=== PATIENT | male | born 1990 | race Two or more races ===

== ENCOUNTER 2017-01-11 15:22 | Emergency (ER) | payer SELFPAY ==
[2017-01-11] MEDS ORDERED: LIDOCAINE 1% INJ-PF (10 MG/ML) 30 ML SDV INJ ONE (17:07)
[2017-01-11] MEDS ORDERED: HYDROCODONE/ACETAMINOPHEN 5-325 MG 6 TAB/DSPK PO PRN (17:08)
--- NOTE | 2017-01-11 17:16 | ER Document Report ---
ED Head/Face/Scalp Injury - General Chief Complaint: Head Injury Stated Complaint: HEAD INJURY Time Seen by Provider: 01/11/17 16:56 Mode of Arrival: Ambulatory Information source: Patient Notes: 26-year-old male presents to the ED for complaint of head injury. He states he was laying on the carpet underneath of across the door that had been taken off its hinges when he stood at the closet door fell on his head causing laceration to his scalp. TRAVEL OUTSIDE OF THE [place] IN LAST 30 DAYS: No - HPI Patient complains to provider of: Contusion, Injury, Laceration, Pain, Swelling Injury to: Head Location of problem: Head Occurred: This afternoon Where: Public place Timing: Still present Context: Laceration, Other - Door fell on his head Loss consciousness: No loss of consciousness Remembers: Injury, Coming to hospital - Related Data Allergies/Adverse Reactions: No Known Allergies Allergy (Verified 12/04/15 18:45) Past Medical History - General Information source: Patient - Social History Smoking Status: Current Every Day Smoker Cigarette use (# per day): Yes - Half a pack a day Chew tobacco use (# tins/day): No Smoking Education Provided: Yes - Less than 2 minutes Frequency of alcohol use: Social Drug Abuse: Marijuana 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 Lives with: Family Family History: Arthritis, CAD, CVA, DM, Hyperlipidemia, Hypertension Patient has suicidal ideation: No Patient has homicidal ideation: No - Past Medical History Cardiac Medical History: Reports: None Pulmonary Medical History: Reports: None EENT Medical History: Reports: None Neurological Medical History: Reports: None Endocrine Medical History: Reports: None Renal/ Medical History: Reports: None Malignancy Medical History: Reports None GI Medical History: Reports: None Musculoskeltal Medical History: Reports None Skin Medical History: Reports None Psychiatric Medical History: Reports: None Traumatic Medical History: Reports: None Infectious Medical History: Reports: None Surgical Hx: Negative Past Surgical History: Reports: None - Immunizations Immunizations up to date: No Hx Diphtheria, Pertussis, Tetanus Vaccination: Yes - 2012 Hx Pneumococcal Vaccination: 05/31/00 Review of Systems - Review of Systems Constitutional: No symptoms reported EENT: No symptoms reported Cardiovascular: No symptoms reported Respiratory: No symptoms reported Gastrointestinal: Nausea. denies: Vomiting Genitourinary: No symptoms reported Male Genitourinary: No symptoms reported Musculoskeletal: No symptoms reported Skin: Other - scalp laceration Hematologic/Lymphatic: No symptoms reported Neurological/Psychological: Headaches. denies: Lost consciousness -: Yes All other systems reviewed and negative Physical Exam - Vital signs Vitals: Temp Pulse Resp BP Pulse Ox 98.5 F 59 L 18 116/61 99 01/11/17 15:51 01/11/17 15:51 01/11/17 15:51 01/11/17 15:51 01/11/17 15:51 Interpretation: Normal - General General appearance: Appears well, Alert - HEENT Head: Ecchymosis, Open wounds, Tenderness Eyes: Normal Pupils: PERRL Ears: Normal External canal: Normal Tympanic membrane: Normal Sinus: Normal Nasal: Normal Mouth/Lips: Normal Pharynx: Normal Neck: Normal - Respiratory Respiratory status: No respiratory distress Chest status: Nontender Breath sounds: Normal Chest palpation: Normal - Cardiovascular Rhythm: Regular Heart sounds: Normal auscultation Murmur: No - Abdominal Inspection: Normal Distension: No distension Bowel sounds: Normal Tenderness: Nontender Organomegaly: No organomegaly - Back Back: Normal, Nontender - Extremities General upper extremity: Normal inspection, Nontender, Normal color, Normal ROM , Normal temperature General lower extremity: Normal inspection, Nontender, Normal color, Normal ROM , Normal temperature, Normal weight bearing. No: Linus's sign - Neurological Neuro grossly intact: Yes Cognition: Normal Orientation: AAOx4 [place] Coma Scale Eye Opening: Spontaneous [place] Coma Scale Verbal: Oriented Roxanna Coma Scale Motor: Obeys Commands [place] Coma Scale Total: 15 Speech: Normal Motor strength normal: LUE, RUE, LLE, RLE Sensory: Normal - Psychological Associated symptoms: Normal affect, Normal mood - Skin Skin Temperature: Warm Skin Moisture: Dry Skin Color: Normal Course - Re-evaluation Re-evalutation: 01/11/17 22:36 Denies any consciousness. Patient was alert and oriented new where he was went he had his injury was able to verbalize what it happened and how he had hit his head. Pupils were equal react to light neuro assessment negative. Patient did have a headache and a scalp laceration which was closed with leah. Patient tolerated well. Patient was discharged home to follow-up with his primary doctor and to return to ED or follow-up with primary doctor for staple removal in 5 days. - Vital Signs Vital signs: Temp Pulse Resp BP Pulse Ox 98.2 F 60 16 93/57 L 100 01/11/17 18:12 01/11/17 18:12 01/11/17 18:12 01/11/17 18:12 01/11/17 18:12 Procedures - Laceration/Wound Repair Right scalp Wound length (cm): 3 Wound's Depth, Shape: Superficial, Linear Laceration pre-procedure: Sterile PPE donned, Sterile drapes applied, Other Anesthetic type: 1% Lidocaine Volume Anesthetic (mLs): 5 Wound explored: Clean Irrigated w/ Saline (mLs): 400 Wound Repaired With: Cleveland Suture Size/Type: Other - Leah Number of Sutures: 3 - Cleveland Layer Closure?: No Post-procedure NV exam normal: Yes Complications: No Discharge - Discharge Clinical Impression: Head injury Qualifiers: Encounter type: initial encounter Qualified Code(s): S09.90XA - Unspecified injury of head, initial encounter Scalp laceration Qualifiers: Encounter type: initial encounter Qualified Code(s): S01.01XA - Laceration without foreign body of scalp, initial encounter Condition: Stable Disposition: HOME, SELF-CARE Additional Instructions: Scalp Laceration A scalp laceration requires little care. Dressings are applied only if severe bleeding or a large flap are present. Usually, once the cut is sutured, you can ignore it. Simply comb the hair over top of it to hide the stitches and go about your usual routine. You can shampoo your hair as needed starting tomorrow. If you need to wear a special hat or protective helmet for work, be careful that it doesn't press on the area. If crusting is bothersome, you can soften the crusts with Polysporin ointment, then shampoo. Infection in a scalp laceration is rare. If any signs of infection occur ( swelling, redness, increasing tenderness, red streaks, tender lumps in the neck on the side of the laceration, or fever), see the doctor immediately. Head Injury Precautions At this point, there is no evidence that your head injury is serious. Observation is necessary, however. Take only clear liquids for the first few hours, unless told otherwise by the doctor. If no pain medication was prescribed, you may take acetaminophen according to the directions on the bottle. Do not take any medication that may alter your level of alertness (unless you've discussed it with the doctor first) . Limit activity for the first 24 hours. Bed rest is best. During the first 24 hours, check to see approximately every two to three hours that the patient is easily arousable, responds normally, and can perform common tasks such as walking without difficulty. Contact your doctor or go to the hospital if any of the following things occur: Persistent vomiting, difficulty in arousing the patient, worsening or continued headache, or failure to improve as expected. Head injuries can cause symptoms that persist for a few days or even a few weeks. Care of Stapled Wounds Your laceration has been stapled to keep the skin edges aligned during healing. The time of staple removal depends on the nature and location of your cut. Please follow the care instructions the doctor has outlined for you and return for further care, according to the schedule you've been given. A special instrument is needed to remove leah without injuring your skin further, so don't try to take the leah out yourself. Keep the wound and dressing clean. Unless you were told otherwise, you may shower daily, blotting the wound dry with a clean, unused towel. At other times, If the dressing gets wet or blood soaked, remove it and blot the wound dry, then reapply a new dressing. Unless you were instructed otherwise, dressings should be changed at least daily. If any signs of infection occur (swelling, redness, increasing tenderness, red streaks, tender lumps in the armpit or groin above the laceration, or fever) , see the doctor immediately. SOAP CLEANSING: Gently wash the wound daily using a mild soap (like Ivory, Phisoderm, Neutrogena). Use warm water, rubbing gently until all debris, ooze, and crusting have been washed from the wound. Allow to dry briefly (about 10 minutes) after cleaning. Repeat this cleansing at least three times a day for the first two days and then once or twice a day. ANTIBIOTIC OINTMENT PROTECTION: Your wounds are such that dressing them is not practical or optional. After cleansing, you should apply a thin coating of antibiotic ointment ( Bacitracin, not Neosporin) to the wounds at least three times daily. This lessens infection risk, and may decrease the amount of scarring. Use a q-tip or dull butter knife, not your finger, to apply this ointment. Any debris or ooze which builds up in the ointment should be gently rubbed off with a sterile gauze pad. Harder crusting may need to be gently scrubbed off with a clean wash cloth with soap and warm water, perhaps applying a warm, wet wash cloth to the wound for ten minutes first. Development of redness, severe itching, or blistering may mean allergy to the ointment. See the doctor. ORAL NARCOTIC MEDICATION: You have been given a 23press dispense pack for pain control. This medication is a narcotic. It's best taken with food, as nausea can result if taken on an empty stomach. Don't operate machinery or drive within six hours of taking this medication. Do not combine this medicine with alcohol, or with any medication which can cause sedation (such as cold tablets or sleeping pills) unless you get permission from the physician. Narcotics tend to cause constipation. If possible, drink plenty of fluids and eat a diet high in fiber and fruits. FOLLOW-UP CARE: Please return in ____3_ days for an infection check and dressing change. Your leah should be removed in _5____ days. To facilitate a timely removal of your sutures, you may return to the Emergency Department at [facility]. You do not need to call for an appointment, but the best time to come in for suture removal is early in the morning. If you have been referred to another physician for follow-up care, call that physicians office for an appointment as you were instructed. If you experience a significant change in your laceration, or if you are concerned there may be an infection (swelling, redness, drainage, increasing tenderness, red streaks, tender lumps in the armpit or groin above the laceration, or fever) , return to the Emergency Department immediately re-evaluation.
[2017-01-11 18:15] VITALS: BP 93/57
== END 2017-01-11 18:15 | disposition home or self-care (01) ==
LOC: ER 15:22
PROC: 0HQ0XZZ Repair Scalp Skin, External Approach (ICD-10-PCS; principal; 2017-01-11)
DX: S09.90XA Unspecified injury of head, initial encounter (principal); S01.01XA Laceration without foreign body of scalp, initial encounter; W22.8XXA Striking against or struck by other objects, initial encounter; F17.210 Nicotine dependence, cigarettes, uncomplicated
CPT/HCPCS: 99282; 12002; J3490

== ENCOUNTER 2017-01-18 22:06 | Emergency (ER) | payer SELFPAY ==
[2017-01-18 22:22] VITALS: BP 140/91
--- NOTE | 2017-01-18 22:40 | ER Document Report ---
ED General - General Chief Complaint: Staple Removal Stated Complaint: STICH REMOVAL Time Seen by Provider: 01/18/17 22:35 Mode of Arrival: Ambulatory Information source: Patient Notes: 26 yr old male presents for staple removal from scalp. Pt also notes generalized scaly rash on skin. Pt is sexually active without protection with partner who is HIV positive and does not take her antiretrovirals rash has been present before he met his partner TRAVEL OUTSIDE OF THE [place] IN LAST 30 DAYS: No - HPI Onset: Other Onset/Duration: Persistent Quality of pain: No pain Severity: None Pain Level: Denies Associated symptoms: None Exacerbated by: Denies Relieved by: Denies Similar symptoms previously: Yes Recently seen / treated by doctor: Yes - Related Data Allergies/Adverse Reactions: No Known Allergies Allergy (Verified 12/04/15 18:45) Past Medical History - Social History Smoking Status: Never Smoker Cigarette use (# per day): No Chew tobacco use (# tins/day): No Smoking Education Provided: No Family History: Arthritis, CAD, CVA, DM, Hyperlipidemia, Hypertension Patient has suicidal ideation: No Patient has homicidal ideation: No Renal/ Medical History: Denies: Hx Peritoneal Dialysis - Immunizations Immunizations up to date: No Hx Diphtheria, Pertussis, Tetanus Vaccination: Yes - 2012 Hx Pneumococcal Vaccination: 05/31/00 Review of Systems - Review of Systems Notes: REVIEW OF SYSTEMS: CONSTITUTIONAL : Denies fever, chills, or sweats. Denies recent illness. EENT: Denies eye, ear, throat, or mouth pain or symptoms. Denies nasal or sinus congestion or discharge. Denies throat, tongue, or mouth swelling or difficulty swallowing. CARDIOVASCULAR: Denies chest pain. Denies palpitations or racing or irregular heart beat. Denies ankle edema. RESPIRATORY: Denies cough, cold, or chest congestion. Denies shortness of breath, difficulty breathing, or wheezing. GASTROINTESTINAL: Denies abdominal pain or distention. Denies nausea, vomiting , or diarrhea. Denies blood in vomitus, stools, or per rectum. Denies black, tarry stools. Denies constipation. GENITOURINARY: Denies difficulty urinating, painful urination, burning, frequency, blood in urine, or discharge. MUSCULOSKELETAL: Denies back or neck pain or stiffness. Denies joint pain or swelling. SKIN: Waban in scalp, dry skin HEMATOLOGIC : Denies easy bruising or bleeding. LYMPHATIC: Denies swollen, enlarged glands. NEUROLOGICAL: Denies confusion or altered mental status. Denies passing out or loss of consciousness. Denies dizziness or lightheadedness. Denies headache. Denies weakness or paralysis or loss of use of either side. Denies problems with gait or speech. Denies sensory loss, numbness, or tingling. Denies seizures. PSYCHIATRIC: Denies anxiety or stress. Denies depression, suicidal ideation, or homicidal ideation. ALL OTHER SYSTEMS REVIEWED AND NEGATIVE. Dictation was performed using [employer] recognition software PHYSICAL EXAMINATION: GENERAL: Well-appearing, well-nourished and in no acute distress. HEAD: Waban in scalp EYES: Pupils equal round and reactive to light, extraocular movements intact, sclera anicteric, conjunctiva are normal. ENT: Nares patent, oropharynx clear without exudates. Moist mucous membranes. NECK: Normal range of motion, supple without lymphadenopathy LUNGS: Breath sounds clear to auscultation bilaterally and equal. No wheezes rales or rhonchi. HEART: Regular rate and rhythm without murmurs ABDOMEN: Soft, nontender, nondistended abdomen. No guarding, no rebound. No masses appreciated. Musculoskeletal: Normal range of motion, no pitting or edema. No cyanosis. NEUROLOGICAL: Cranial nerves grossly intact. Normal speech, normal gait. Normal sensory, motor exams PSYCH: Normal mood, normal affect. SKIN: Ringworm-like rash on right arm Physical Exam - Vital signs Vitals: Temp Pulse Resp BP Pulse Ox 98.5 F 107 H 16 140/91 H 98 01/18/17 22:17 01/18/17 22:17 01/18/17 22:17 01/18/17 22:17 01/18/17 22:17 Course - Re-evaluation Re-evalutation: 01/18/17 23:49 3 Waban were removed with no complication laceration healed well Had extensive conversation with patient in regards to safe sex Encouraged patient to use [id number] medication for possible ringworm infection After performing a Medical Screening Examination, I estimate there is LOW risk for OPEN FRACTURE, COMPARTMENT SYNDROME, TENDON RUPTURE, ACUTE NEUROVASCULAR INJURY, or RETAINED FOREIGN BODY, thus I consider the discharge disposition reasonable. Also, there is no evidence or peritonitis, sepsis, or toxicity. I have reevaluated this patient multiple times and no significant life threatening changes are noted. The patient and I have discussed the diagnosis and risks, and we agree with discharging home with close follow-up with the understanding that symptoms and presentations can change. We also discussed returning to the Emergency Department immediately if new or worsening symptoms occur. We have discussed the symptoms which are most concerning (e.g., changing or worsening pain, fever, numbness, weakness, cool or painful digits) that necessitate immediate return. - Vital Signs Vital signs: Temp Pulse Resp BP Pulse Ox 98.5 F 107 H 16 140/91 H 98 01/18/17 22:17 01/18/17 22:17 01/18/17 22:17 01/18/17 22:17 01/18/17 22:17 Discharge - Discharge Clinical Impression: Removal of staple, Ringworm, unsafe sex Condition: Stable Disposition: HOME, SELF-CARE Instructions: Ringworm (Tinea Corporis) ([facility]) Additional Instructions: Follow up with your physician tomorrow for further care or return to the ED IMMEDIATELY if symptoms worsen or new concerns occur. If you cannot afford to follow up with your primary care physician a list of low cost clinics have been provided at the end of your discharge papers as well.
== END 2017-01-18 22:44 | disposition home or self-care (01) ==
LOC: ER 22:06
DX: Z48.02 Encounter for removal of sutures (principal); B35.9 Dermatophytosis, unspecified; Z72.89 Other problems related to lifestyle

== ENCOUNTER 2017-05-30 13:05 | Emergency (ER) | payer SELFPAY ==
--- NOTE | 2017-05-30 14:20 | ER Document Report ---
ED General - General Chief Complaint: Penile Problem Stated Complaint: BUMP ON PENIS Time Seen by Provider: 05/30/17 14:10 Notes: Patient is a 27-year-old male who presents emergency department complaining of right inguinal pain. Patient states that he had an ingrown hair over the past couple of days as has been continuing to pick at and woke up today with right inguinal discomfort. at the bedside states that he also had one episode of hematuria 5 days ago. Admits to back pain that is worse with movement. States that they have moved into a new house and he has been moving a lot of the furniture by himself. At this time he admits to right-sided back pain without associated urinary/stool incontinence, saddle anesthesia. States it is tender to touch worse with movement. Has not taken anything [id number] for it. He denies any fevers or chills. TRAVEL OUTSIDE OF THE [place] IN LAST 30 DAYS: No - Related Data Allergies/Adverse Reactions: No Known Allergies Allergy (Verified 05/30/17 13:07) Past Medical History - Social History Smoking Status: Current Every Day Smoker Drug Abuse: Marijuana Family History: Arthritis, CAD, CVA, DM, Hyperlipidemia, Hypertension Renal/ Medical History: Denies: Hx Peritoneal Dialysis - Immunizations Immunizations up to date: No Hx Diphtheria, Pertussis, Tetanus Vaccination: Yes - 2012 Hx Pneumococcal Vaccination: 05/31/00 Review of Systems - Review of Systems Constitutional: No symptoms reported Cardiovascular: No symptoms reported Respiratory: No symptoms reported Gastrointestinal: No symptoms reported Genitourinary: See HPI Musculoskeletal: See HPI Skin: See HPI -: Yes All other systems reviewed and negative Physical Exam - Vital signs Vitals: Temp Pulse Resp BP Pulse Ox 98.3 F 70 20 109/67 100 05/30/17 13:34 05/30/17 13:34 05/30/17 13:34 05/30/17 13:34 05/30/17 13:34 - Notes Notes: PHYSICAL EXAM GENERAL: Alert, interacts well. ABDOMEN: Soft, nondistended, nontender. No guarding, rebound, or rigidity.. Bowel sounds present in all 4 quadrants. EXTREMITIES: Moves all 4 extremities spontaneously. No edema, radial and dorsalis pedis pulses 2/4 bilaterally. No cyanosis. Male : Pubic hair with 2 cm diameter of erythema without any evidence of purulent discharge. Testicles equal and nontender bilaterally. No evidence of a hernia bilaterally Cremasteric reflex intact bilaterally. Back: Right paralumbar muscular tenderness with pain reproducible palpation. No spinous process tenderness, deformities or step-offs. Gait stable. NEUROLOGICAL: Alert and oriented x4. Normal speech. PSYCH: Normal affect, normal mood. SKIN: Warm, dry, normal turgor. No rashes or lesions noted. Course - Re-evaluation Re-evalutation: 05/30/17 16:04 Patient is a 27-year-old male who is hemodynamically stable, no acute distress and afebrile. Back pain is consistent with a muscle strain given The physical activity he has been doing lately as well as physical exam is benign for any concerns of spinal cord compression, cauda equina syndrome, infection, aneurysm his pain improves with hot packs as well as massage and anti -inflammatories. The patient is neurologically intact. Regarding his right inguinal discomfort. Bedside ultrasound shows evidence of an enlarged lymph node is likely related to his folliculitis from an ingrown hair. Will discharge patient home on antibiotics and instruction to leave this site alone. Patient agrees with plan and is stable for discharge home.. - Vital Signs Vital signs: Temp Pulse Resp BP Pulse Ox 97.9 F 65 20 104/63 100 05/30/17 16:15 05/30/17 16:15 05/30/17 16:15 05/30/17 16:15 05/30/17 16:15 Procedures - Ultrasound/Bedside Ultrasound/Bedside Ultrasound: Other - No evidence of superficial fluid collection or concern for a inguinal hernia. Discharge - Discharge Clinical Impression: Folliculitis Condition: Good Disposition: HOME, SELF-CARE Instructions: Cephalexin ([facility]), Folliculitis ([facility]) Prescriptions: Cephalexin Monohydrate [Keflex 500 mg Capsule] 500 mg PO QID #20 capsule
[2017-05-30] MEDS ORDERED: ACETAMINOPHEN WITH CODEINE #3 TABLET PO ONE (14:22)
[2017-05-30] MEDS ORDERED: ONDANSETRON 4 MG TAB.RAPDIS PO ONE (14:27)
[2017-05-30 14:54] LABS: APPEARANCE,URINE CLEAR; BILIRUBIN,URINE NEGATIVE (NEGATIVE); COLOR,URINE STRAW; GLUCOSE, URINE NEGATIVE (NEGATIVE); KETONES,URINE NEGATIVE (NEGATIVE); LEUKOCYTE ESTERASE,URINE NEGATIVE (NEGATIVE); NITRITE,URINE NEGATIVE (NEGATIVE); PROTEIN,URINE NEGATIVE (NEGATIVE); UROBILINOGEN,URINE NEGATIVE mg/dL (<2.0)
[2017-05-30 16:42] VITALS: BP 104/63
== END 2017-05-30 16:15 | disposition home or self-care (01) ==
LOC: ER 13:05
DX: L73.9 Follicular disorder, unspecified (principal); R10.30 Lower abdominal pain, unspecified; M79.604 Pain in right leg; F17.200 Nicotine dependence, unspecified, uncomplicated
CPT/HCPCS: 99283; 81001; S0119

== ENCOUNTER 2018-05-13 14:24 | Emergency (ER) | payer SELFPAY ==
--- NOTE | 2018-05-13 14:54 | ER Document Report ---
ED Medical Screen (RME) - General Chief Complaint: Suicidal Ideation Stated Complaint: PSYCH EVAL Time Seen by Provider: 05/13/18 14:53 Notes: 28 years old male presents today with suicidal ideations, stressful, violent behavior. TRAVEL OUTSIDE OF THE [place] IN LAST 30 DAYS: No - Related Data Allergies/Adverse Reactions: No Known Allergies Allergy (Verified 05/13/18 14:26) Past Medical History Renal/ Medical History: Denies: Hx Peritoneal Dialysis - Immunizations Immunizations up to date: No Hx Diphtheria, Pertussis, Tetanus Vaccination: Yes - 2012 Physical Exam - Vital signs Vitals: Temp Pulse Resp BP Pulse Ox 99.2 F 95 14 109/64 97 05/13/18 14:30 05/13/18 14:30 05/13/18 14:30 05/13/18 14:30 05/13/18 14:30 Course - Vital Signs Vital signs: Temp Pulse Resp BP Pulse Ox 99.2 F 95 14 109/64 97 05/13/18 14:30 05/13/18 14:30 05/13/18 14:30 05/13/18 14:30 05/13/18 14:30
[2018-05-13 15:48] LABS: ABSOLUTE LYMPHOCYTES (AUTO) 2.1 10^3/uL (0.5-4.7); ABSOLUTE MONOCYTES (AUTO) 0.8 10^3/uL (0.1-1.4); ABSOLUTE NEUT (AUTO) 7.3 10^3/uL (1.7-8.2); BASOPHILS % (AUTO) 0.3 % (0-2); EOSINOPHILS % (AUTO) 0.3 % (0-6); HEMATOCRIT 41.3 % (37.9-51.0); HEMOGLOBIN 13.9 g/dL (13.5-17.0); LYMPHOCYTES % (AUTO) 20.7 % (13-45); MEAN CORPUSCULAR HEMOGLOBIN 27.4 pg (27.0-33.4); MEAN CORPUSCULAR HGB CONC 33.6 g/dL (32.0-36.0); MEAN CORPUSCULAR VOLUME 82 fl (80-97); MONOCYTES % (AUTO) 7.6 % (3-13); PLATELET COUNT 295 10^3/uL (150-450); RED BLOOD COUNT 5.07 10^6/uL (4.35-5.55); RED CELL DISTRIBUTION WIDTH 13.9 % (11.5-14.0); SEGMENTED NEUTROPHILS % (AUTO) 71.1 % (42-78); TOTAL CELLS COUNTED % (AUTO) 100 %; WHITE BLOOD COUNT 10.3 10^3/uL (4.0-10.5)
[2018-05-13 15:50] LABS: APPEARANCE,URINE SLIGHTLY-CLOUDY; BILIRUBIN,URINE NEGATIVE (NEGATIVE); CALCIUM OXALATE CRYSTALS,URINE RARE /HPF; GLUCOSE, URINE NEGATIVE (NEGATIVE); KETONES,URINE TRACE mg/dL (NEGATIVE); LEUKOCYTE ESTERASE,URINE NEGATIVE (NEGATIVE); NITRITE,URINE NEGATIVE (NEGATIVE); PROTEIN,URINE 30 mg/dL (NEGATIVE); URINE SPECIFIC GRAVITY 1.039
[2018-05-13 15:56] LABS: COLOR,URINE YELLOW
[2018-05-13 16:03] LABS: URINE AMPHETAMINES SCREEN NEGATIVE; URINE BARBITURATES SCREEN NEGATIVE; URINE BENZODIAZEPINES SCREEN NEGATIVE; URINE COCAINE SCREEN UNCONFIRMED POSITIVE; URINE MARIJUANA (THC) SCREEN UNCONFIRMED POSITIVE; URINE METHADONE SCREEN NEGATIVE; URINE PHENCYCLIDINE SCREEN NEGATIVE
[2018-05-13 16:04] LABS: ALANINE AMINOTRANSFERASE 20 U/L (21-72); ALBUMIN 4.8 g/dL (3.5-5.0); ALKALINE PHOSPHATASE 59 U/L (38-126); ANION GAP 13 (5-19); ASPARTATE AMINO TRANSFERASE 27 U/L (17-59); BILIRUBIN,DIRECT 0.3 mg/dL (0.0-0.4); BILIRUBIN,TOTAL 0.5 mg/dL (0.2-1.3); BLOOD UREA NITROGEN 18 mg/dL (7-20); CALCIUM 10.3 mg/dL (8.4-10.2); CARBON DIOXIDE 30 mmol/L (22-30); CHLORIDE 102 mmol/L (98-107); GLUCOSE 97 mg/dL (75-110); POTASSIUM 4.2 mmol/L (3.6-5.0); SODIUM 144.5 mmol/L (137-145); TOTAL PROTEIN 7.7 g/dL (6.3-8.2)
[2018-05-13 16:06] LABS: ACETAMINOPHEN < 10 ug/mL (10-30); ALCOHOL < 10 mg/dL (NONE DETECTED); SALICYLATE < 1.0 mg/dL (2.0-20.0)
[2018-05-13] MEDS ORDERED: CITALOPRAM HYDROBROMIDE 20 MG TABLET PO ONE (16:18)
--- NOTE | 2018-05-13 16:54 | ER Document Report ---
ED General - General Chief Complaint: Suicidal Ideation Stated Complaint: PSYCH EVAL Time Seen by Provider: 05/13/18 14:53 TRAVEL OUTSIDE OF THE [place] IN LAST 30 DAYS: No - HPI Patient complains to provider of: Suicidal ideation Notes: Is coming in for evaluation of suicidal ideation. Patient states is been ongoing for approximately 3 weeks. 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 Patient denies any issues with suicidal ideation suicide attempts in the past. Patient denies a plan at this time. Patient states he lives with his fiance denies any access to weapons. Patient states he does smoke marijuana denies any other alcohol or any other drug abuse. Upon my evaluation patient is resting comfortably - Related Data Allergies/Adverse Reactions: No Known Allergies Allergy (Verified 05/13/18 14:26) Past Medical History - Social History Smoking Status: Current Every Day Smoker Frequency of alcohol use: Occasional Drug Abuse: Cocaine, Marijuana Family History: Arthritis, CAD, CVA, DM, Hyperlipidemia, Hypertension Patient has suicidal ideation: Yes Patient has homicidal ideation: No Renal/ Medical History: Denies: Hx Peritoneal Dialysis Psychiatric Medical History: Reports: Hx Attention Deficit Hyperactivity Disorder - Immunizations Immunizations up to date: No Hx Diphtheria, Pertussis, Tetanus Vaccination: Yes - 2012 Hx Pneumococcal Vaccination: 05/31/00 Review of Systems - Review of Systems Constitutional: No symptoms reported EENT: No symptoms reported Cardiovascular: No symptoms reported Respiratory: No symptoms reported Gastrointestinal: No symptoms reported Genitourinary: No symptoms reported Male Genitourinary: No symptoms reported Musculoskeletal: No symptoms reported Skin: No symptoms reported Hematologic/Lymphatic: No symptoms reported Neurological/Psychological: Suicidal ideation -: Yes All other systems reviewed and negative Physical Exam - Vital signs Vitals: Temp Pulse Resp BP Pulse Ox 99.2 F 95 14 109/64 97 05/13/18 14:30 05/13/18 14:30 05/13/18 14:30 05/13/18 14:30 05/13/18 14:30 Interpretation: Normal - General General appearance: Appears well, Alert - HEENT Head: Normocephalic, Atraumatic Eyes: Normal Pupils: PERRL - Respiratory Respiratory status: No respiratory distress Chest status: Nontender Breath sounds: Normal Chest palpation: Normal - Cardiovascular Rhythm: Regular Heart sounds: Normal auscultation Murmur: No - Abdominal Inspection: Normal Distension: No distension Bowel sounds: Normal Tenderness: Nontender Organomegaly: No organomegaly - Back Back: Normal, Nontender - Extremities General upper extremity: Normal inspection, Nontender, Normal color, Normal ROM , Normal temperature General lower extremity: Normal inspection, Nontender, Normal color, Normal ROM , Normal temperature, Normal weight bearing. No: Linus's sign - Neurological Neuro grossly intact: Yes Cognition: Normal Orientation: AAOx4 [place] Coma Scale Eye Opening: Spontaneous Roxanna Coma Scale Verbal: Oriented [place] Coma Scale Motor: Obeys Commands [place] Coma Scale Total: 15 Speech: Normal Motor strength normal: LUE, RUE, LLE, RLE Sensory: Normal - Psychological Associated symptoms: Normal affect, Normal mood - Skin Skin Temperature: Warm Skin Moisture: Dry Skin Color: Normal Course - Re-evaluation Re-evalutation: 05/13/18 21:10 After study showed patient positive for cocaine marijuana and opiates. Patient was reevaluated patient now this time does admit to using cocaine marijuana states last cocaine use was approximately 3 days ago. Patient states he does take Percocets whenever he can get a "handful". Patient was evaluated by psychiatric team recommends Celexa at this time. Patient was given 20 mg dose patient agrees with observation at this time patient with passive suicidal ideation with no plan because were given the patient medications will monitor the patient overnight and reevaluate in the morning however I do feel the patient can be safely discharged follow-up with outpatient resources as as the patient has no plan no access to weapons 05/13/18 21:11 - Vital Signs Vital signs: Temp Pulse Resp BP Pulse Ox 99.2 F 95 14 109/64 97 05/13/18 14:30 05/13/18 14:30 05/13/18 14:30 05/13/18 14:30 05/13/18 14:30 - Laboratory Result Diagrams: 05/13/18 15:25 05/13/18 15:25 Laboratory results interpreted by me: 05/13/18 05/13/18 15:25 15:25 Calcium 10.3 H ALT 20 L Urine Protein 30 H Urine Ketones TRACE H Urine Urobilinogen 2.0 H Urine Ascorbic Acid 40 H Salicylates < 1.0 L Acetaminophen < 10 L Discharge - Discharge Clinical Impression: Polysubstance abuse, Suicidal ideation
--- NOTE | 2018-05-13 16:57 | PSYCHOLOGICAL NOTE ---
Psych Note - Psych Note Date seen by psych provider: 05/13/18 Time seen by psych provider: 15:30 Psych Note: Reason for Consult: Suicidal ideation Consent Permissions: patient's Cinthia mckenzie [phone] 28 years old male presents today with suicidal ideations, stressful, violent behavior. Patient reports that he came to [facility] by his friend because he is "sometimes I think I want to kill myself." He reports that he is not having any thoughts right now however he was having it right before arriving to [facility]. He states that he is not been any medications were however does smoke weed at times. He also admits to drinking and smoking socially. Patient states that his stressors have been that he was laid off of work for the last 30 days because there is not enough work available. 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 He reports that because of not working he has been arguing more with his fiance. He confirms that his thoughts of suicidal ideation comes and goes and they are just "ugly thoughts no plan." He states that when he was a child he was diagnosed with ADHD however has not been any medications does not have an outpatient mental health provider and has never been inpatient psychiatric treatment. Patient denies engaging in any self-harm behaviors. When asked if he ever hears or sees things that confused or scares him he reports that "sometimes I hear a door closed and no once they are sometimes I hear my magaly talking to me but she is not there." He denies any visual hallucinations. When discussing plan of care he identifies he does not have any insurance however I can afford to purchase medications if any are prescribed to him. Patient is alert and oriented to person, place, time and circumstance. Mood is dysphoric with tearful affect. Patient endorses passive suicidal ideation I no plans means or intent. Patient denies homicidal ideation. Delusions are absent behaviors congruent with an intact reality based presentation I organized and the thought process. Eye contact is fair. Conversational speech is noted to be halting at times; patient's primary language is Latvian however is proficient in Bermudian. Intellectual abilities appear to be within the average range. Attention and concentration are fair. Insight, judgment, impulse control are fair. Medication recommendations per [facility]'s contracted psychiatrist Dr. elsy LOPEZ are as follows Celexa 20 mg daily Substance abuse 311 (F32.9) Unspecified depressive disorder Impression\\plan: Patient is recommended for overnight mental health observation. Patient discloses passive suicidal ideation i.e. no plans means or intent. He reports situational depression in regards to being recently laid off from work. He states this is caused arguments between him and his fiance. Patient's mood is dysphoric with tearful affect. Medication recommendations have been provided. Patient disclosed smoking marijuana however denied any other drug use clinician notes patient does have positive results for opiates and cocaine in addition to the marijuana. Patient is recommended for outpatient mental health and substance use treatment. He has been provided a local resource list of area providers including mobile crisis contact information. Dr. Freeman was consulted and the care and management of this patient; attending physicians in agreement with recommendations and disposition.
[2018-05-14] MEDS ORDERED: ACETAMINOPHEN 325 MG TABLET PO ONE (09:34)
--- NOTE | 2018-05-14 09:37 | ER Document Report ---
Doctor's Note Notes: 05/14/18 09:36 28-year-old male with past medical history as recorded who recently lost his job and having some passive suicidal ideations without a plan for around 3 weeks as well as marijuana and cocaine abuse. Patient lives with his fiance. Patient was seen and evaluated by the psychology/psychiatry team. They started the patient on Celexa. This morning the patient denies any suicidal ideations. Patient is very calm and cooperative. Justice is comfortable with the patient going home. The psychology team has provided outpatient follow-up resources. Labs as recorded. Vital signs are stable. 05/14/18 13:34 Patient has been calm and cooperative. He denies any suicidal ideations at this time. We have found a bed for the patient at the [facility]. Patient is very comfortable with this plan. Justice is in agreement with this plan. Patient will be discharged to the [facility] at this time with strict return precautions.
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
[2018-05-14 14:06] VITALS: BP 123/75
--- NOTE | 2018-05-16 00:51 | EKG REPORT ---
SEVERITY:- ABNORMAL ECG - SINUS RHYTHM CONSIDER LEFT VENTRICULAR HYPERTROPHY : Confirmed by: Rocio Osman MD 16-May-2018 00:51:02
== END 2018-05-14 14:05 | disposition home or self-care (01) ==
LOC: ER 14:24
DX: R45.851 Suicidal ideations (principal); F19.10 Other psychoactive substance abuse, uncomplicated; F17.200 Nicotine dependence, unspecified, uncomplicated; F32.9 Major depressive disorder, single episode, unspecified
CPT/HCPCS: 36415; 80053; 80307; 81001; 85025; 93005; 93010; 99285

== ENCOUNTER 2018-08-29 00:30 | Emergency (ER) | payer SELFPAY ==
[2018-08-29 00:45] VITALS: BP 122/64
[2018-08-29] MEDS ORDERED: PROMETHAZINE HCL 25 MG TABLET PO ONE (02:05)
[2018-08-29] MEDS ORDERED: OXYCODONE-ACETAMINOPHEN 5-325 MG TABLET PO ONE (02:05)
[2018-08-29] MEDS ORDERED: DIPH/PERTUSS(ACELL)/TETANUS VAC/PF 0.5 ML SYR (>=10YO) IM ONE (02:06)
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
--- NOTE | 2018-08-29 02:53 | RADIOLOGY REPORT (SQ) ---
CLINICAL HISTORY: injury, bruising, pain COMPARISON: None. TECHNIQUE: XR TOES 2 OR MORE VIEWS 08/29/2018 2:06 AM CDT FINDINGS: There is no fracture. Joint spaces are preserved. Soft tissues are unremarkable. IMPRESSION: No acute osseous findings.
[2018-08-29] MEDS ORDERED: HYDROCODONE/ACETAMINOPHEN 5-325 MG (6 TAB/ER DISP) PO PRN (03:04)
== END 2018-08-29 03:35 | disposition home or self-care (01) ==
LOC: ER 00:30
DX: S99.822A Other specified injuries of left foot, initial encounter (principal); W22.09XA Striking against other stationary object, initial encounter; Z23 Encounter for immunization
CPT/HCPCS: 90471; 90715; 99283